=== PATIENT | male | born 2000 | race Caucasian/White ===

== ENCOUNTER 2020-02-16 23:57 | Emergency (ER) | payer OTHER ==
[~2020-02-16] VITALS: Ht 185.4 cm; Wt 92.2 kg
[2020-02-17 00:10] VITALS: BP 139/98
--- NOTE | 2020-02-17 00:17 | EKG ---
[address] [address] Test Date: 2020-02-17 Test Time: 00:05:25 Pat Name: ARIELLA OLIVO Department: Room: Gender: M [employer]: : 2000 Requested By: VIRGILIO GREER Order Number: [id number] Reading MD: Armando Yun Measurements Intervals [place] Rate: 85 P: 65 PA: 140 QRS: 76 QRSD: 108 T: 50 QT: 364 QTc: 439 Interpretive Statements SINUS RHYTHM NORMAL ECG RI6.02 No previous ECG available for comparison Electronically Signed On 02-18-2020 7:52:37 CDT by Armando Yun
--- NOTE | 2020-02-17 00:18 | PHYS DOC ---
Past History Past Medical History: No Pertinent History Past Surgical History: Tonsillectomy Smoking: Cigarettes Alcohol Use: None Drug Use: None General Adult EDM: Chief Complaint: RAPID HEART RATE HPI: HPI: 19-year-old male who is in the presents with [place] police with request for medical screening exam and legal blood draw. Concern for possible intoxication. Patient apparently was pulled over with some "concerning substances" in the vehicle. Patient denies any complaint. There was initial concern for rapid heart rate. Patient reports "I am not sure why I am here ". Police present with a legal document requesting blood draw. Patient initially had refused blood draw, but subsequently was in agreement and consented. Review of Systems: Review of Systems: Constitutional: Denies fever or chills Respiratory: Denies cough or shortness of breath Cardiovascular: Denies chest pain; reports rapid heart rate GI: Denies nausea or vomiting Musculoskeletal: Denies back pain or joint pain Integument: Denies rash or skin lesions Neurologic: Denies headache, focal weakness or sensory changes Complete systems were reviewed and found to be within normal limits, except as documented in this note. Allergies: Allergies: Allergies Coded Allergies Type Severity Reaction Last Updated Verified No Known Drug Allergies 02/17/20 No Physical Exam: PE: Constitutional: Well developed, well nourished, no acute distress, non-toxic appearance HENT: Normocephalic, atraumatic, oropharynx moist Eyes: Conjunctiva normal, no discharge Neck: Normal range of motion, no tenderness, supple Cardiovascular: Heart rate normal, regular rhythm Lungs & Thorax: Bilateral breath sounds clear to auscultation, no wheezing Skin: Warm, dry, no erythema, no rash Extremities: No tenderness, ROM intact, no edema Neurologic: Alert and oriented X 3, no focal deficits noted Psychologic: Affect normal, judgment normal EKG: EKG: @0005 NSR at 85bpm, NO ST elevation, QRS 108ms, QT/QTc 364/439ms Radiology/Procedures: Radiology/Procedures: [] Course & Med Decision Making: Course & Med Decision Making Patient presents in police custody with [employer] police with request for medical screening exam as well as legal blood draw. Patient reports "I am not sure why I am here ". Patient had reportedly stated he had a rapid heart rate. EKG was obtained and found to be normal sinus rhythm. A medical screening exam was performed. Patient deemed medically cleared to continue in police custody. A legal blood draw was commenced after patient consented. Patient stable for discharge in police custody. Discussed findings and plan with patient, who acknowledges understanding and agreement. Ray Disclaimer: Ray Disclaimer: This electronic medical record was generated, in whole or in part, using a voice recognition dictation system. Departure Departure: Impression: Primary Impression: Encounter for blood test Additional Impressions: In police custody Encounter for medical screening examination Disposition: HOME, SELF-CARE (in police custody) Condition: STABLE Referrals: PCP,UNKNOWN (PCP) Patient Instructions: Medical Screening Exam Additional Instructions: You have received a medical screening exam and are deemed safe to continue in police custody. Police have requested you receive a blood draw for legal purposes. VIRGILIO GREER DO February 17, 2020 00:18
== END 2020-02-17 00:30 | disposition home or self-care (01) ==
LOC: ER 23:57
DX: Z00.00 Encounter for general adult medical examination without abnormal findings (principal); R00.0 Tachycardia, unspecified; F17.210 Nicotine dependence, cigarettes, uncomplicated
CPT/HCPCS: 93005; 99283